=== PATIENT | male | born 1975 | race Caucasian/White ===

== ENCOUNTER 2017-09-08 08:20 | Day surgery (SDC) | payer OTHER ==
[~2017-09-08 08:20] MED LIST: Lactated Ringers 1,000 ML IV SCH; Lidocaine 2% 5 ML SDV ONE; Midazolam 1 MG/ML 2 ML SDV ONE; Propofol 200 MG/20 ML SDV ONE; fentaNYL 100 MCG/2 ML SDV ONE
[2017-09-08] MEDS ORDERED: Sodium Chloride 0.9% 10 ML Syringe FLUSH PRN ×2 (09:00)
[2017-09-08] MEDS ORDERED: Lactated Ringers 1,000 ML IV SCH (09:00)
[2017-09-08] MEDS ORDERED: Sodium Chloride 0.9% 2.5 ML Syringe FLUSH PRN ×2 (09:00)
--- NOTE | 2017-09-08 09:17 | PCM.PREANE ---
Preanesthetic Assessment - Anesthesia/Transfusion/Family Hx Anesthesia History: Prior Anesthesia Without Reaction Family History of Anesthesia Reaction: No Transfusion History: Prior Transfusion Without Reaction Intubation History: Unknown - Review of Systems General: No Symptoms Pulmonary: No Symptoms Cardiovascular: No Symptoms Gastrointestinal: Other (perianal pain) Neurological: No Symptoms Other: Reports: None - Physical Assessment O2 Sat by Pulse Oximetry: 94 Respiratory Rate: 16 Vital Signs: Last Vital Signs Temp 36.6 C 09/08/17 08:58 Pulse 70 09/08/17 08:58 Resp 16 09/08/17 08:58 BP 136/80 09/08/17 08:58 Pulse Ox 94 L 09/08/17 08:58 Height: 1.83 m Weight: 139.253 kg ASA Class: 2 Mental Status: Alert & Oriented x3 Airway Class: Mallampati = 2 Dentition: Reports: Normal Dentition, [place](s) (x2 upper front and left) Thyro-Mental Finger Breadths: 3 Mouth Opening Finger Breadths: 3 ROM/Head Extension: Full Lungs: Clear to Auscultation, Normal Respiratory Effort Cardiovascular: Regular Rate, Regular Rhythm - Allergies Allergies/Adverse Reactions: Allergies Allergy/AdvReac Type Severity Reaction Status Date / Time No Known Allergies Allergy Verified 09/02/17 14:05 - Blood Blood Available: No - Anesthesia Plan Pre-Op Medication Ordered: None - Acknowledgements Anesthesia Type Planned: MAC Pt an Appropriate Candidate for the Planned Anesthesia: Yes Alternatives and Risks of Anesthesia Discussed w Pt/Guardian: Yes Pt/Guardian Understands and Agrees with Anesthesia Plan: Yes PreAnesthesia Questionnaire Cardiovascular History: Reports: Hypertension Gastrointestinal History: Reports: Hemorrhoids, Other (See Below) Other Gastrointestinal History: anal fissure Genitourinary History: Reports: None Musculoskeletal History: Reports: Fracture, Other (See Below) Other Musculoskeletal History: fx thumb Psychiatric History: Reports: ADD, Anxiety, Depression Endocrine/Metabolic History: Reports: Obesity/BMI 30+ Hematologic History: Reports: Other (See Below) 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, 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 - Past Surgical History Head Surgeries/Procedures: Reports: None GI Surgical History: Reports: Appendectomy, Hernia, Inguinal, Other (See Below) Other GI Surgeries/Procedures: pyloromyotomy for pyloric stenosis at 6 weeks old , hernia repair x3 - SUBSTANCE USE Smoking Status *Q: Never Smoker Recreational Drug Use History: No - HOME MEDS Home Medications: Home Meds Losartan/Hydrochlorothiazide [Losartan-HCTZ 50-12.5 MG] 1 tab PO DAILY 09/02/17 [History] Methylphenidate HCl 20 mg PO DAILY 09/02/17 [History] Sertraline HCl 100 mg PO DAILY 09/02/17 [History] - CURRENT (IN HOUSE) MEDS Current Meds: Current Medications Lactated Ringer's (Ringers, Lactated) 1,000 mls @ 125 mls/hr IV ASDIRECTED HUE Last Admin: 09/08/17 08:55 Dose: 125 mls/hr Lactated Ringer's (Ringers, Lactated) 1,000 mls @ 125 mls/hr IV ASDIRECTED HUE Sodium Chloride (Saline Flush) 10 ml FLUSH ASDIRECTED PRN PRN Reason: Keep Vein Open Sodium Chloride (Saline Flush) 2.5 ml FLUSH ASDIRECTED PRN PRN Reason: Keep Vein Open Sodium Chloride (Saline Flush) 10 ml FLUSH ASDIRECTED PRN PRN Reason: Keep Vein Open Sodium Chloride (Saline Flush) 2.5 ml FLUSH ASDIRECTED PRN PRN Reason: Keep Vein Open Discontinued Medications Fentanyl (Sublimaze) Confirm Administered Dose 100 mcg .ROUTE .STK-MED ONE Stop: 09/08/17 07:23 Lidocaine (Xylocaine-Mpf 2%) Confirm Administered Dose 5 ml .ROUTE .STK-MED ONE Stop: 09/08/17 07:23 Midazolam HCl (Versed 1 Mg/Ml) Confirm Administered Dose 2 mg .ROUTE .STK-MED ONE Stop: 09/08/17 07:23 Propofol (Diprivan 20 Ml) Confirm Administered Dose 400 mg .ROUTE .STK-MED ONE Stop: 09/08/17 07:23
[2017-09-08] MEDS ORDERED: fentaNYL 100 MCG/2 ML SDV ONE (09:55)
--- NOTE | 2017-09-08 10:15 | PCM.OPNOTE ---
- General Post-Op/Procedure Note Date of Surgery/Procedure: 09/08/17 Operative Procedure(s): Diagnostic colonoscopy Findings: Grade 4 hemorrhoids with large left lateral column Pre Op Diagnosis: Chana-anal pain Post-Op Diagnosis: Grade 4 hemorrhoids Anesthesia Technique: CHET Primary Surgeon: Ya Calderon Condition: Good
--- NOTE | 2017-09-08 10:51 | PCM48HPAN ---
Post Anesthesia Note - EVALUATION WITHIN 48HRS OF ANESTHETIC Vital Signs in Normal Range: Yes Patient Participated in Evaluation: Yes Respiratory Function Stable: Yes Airway Patent: Yes Cardiovascular Function Stable: Yes Hydration Status Stable: Yes Pain Control Satisfactory: Yes Nausea and Vomiting Control Satisfactory: Yes Mental Status Recovered: Yes Resp Rate: 15 - COMMENTS/OBSERVATIONS Free Text/Narrative:: no anesthesia problems
--- NOTE | 2017-09-08 11:19 | OR ---
SURGEON: ELIZABETH BUCIO MD DATE OF PROCEDURE: 09/08/2017 PREOPERATIVE DIAGNOSIS: Perianal pain. POSTOPERATIVE DIAGNOSIS: Grade 4 hemorrhoids. PROCEDURES PERFORMED: Exam under anesthesia, diagnostic colonoscopy. ANESTHESIA: MAC. INSTRUMENT USED: Olympus colonoscope. EXTENT OF THE EXAMINATION: To the cecum. PREPARATION: Good. LIMITATIONS: None. INDICATIONS FOR EXAMINATION: The patient is a 42-year-old male who presents with perianal pain. He has tried [id number] creams and fiber therapy with some improvement, but not resolution of his symptoms. A decision was made to perform a diagnostic colonoscopy. The patient and I discussed the procedure; expected perioperative course; and risks including bleeding, infection, or damage to surrounding structures including perforation. The patient verbalized understanding and wishes to proceed. PROCEDURE IN DETAIL: The patient was brought to the endoscopy suite and placed in the left lateral decubitus position. A time-out was completed verifying the patient's name, age, date of , allergies, and procedure to be performed. Monitored anesthesia care was induced, and continuous oxygen was provided via nasal cannula throughout the procedure. After adequate sedation was achieved, a digital rectal exam was performed as well as an extensive exam of the anoderm. The patient was noted to have large prolapsing grade 4 hemorrhoids. The largest of these was the left lateral colon. On digital rectal exam, I could not palpate any masses. The patient was noted to have some pain along the posterior aspect of his anus on exam. Inspection of this area, however, did not reveal any evidence of an anal fissure. A well-lubricated colonoscope was inserted into the rectum and advanced under direct visualization to the level of the cecum. The cecum was identified by both visual and anatomic landmarks. A photograph was taken of the cecal cap, as well as the scope retroflexed within the cecum. The scope was then fully withdrawn while examining the color, texture, anatomy, and integrity of the mucosa from the cecum to the anal canal. The findings were consistent with normal colonic mucosa. The scope was brought into the rectum and retroflexed to allow visualization of the anal canal opening. This appeared normal, and a photograph was taken. The scope was then straightened out and fully withdrawn. Special care was taken to inspect the anal canal as the scope was being withdrawn. No evidence of any mass or irregular-appearing tissue besides the hemorrhoid was noted. The [id number] time was 9 minutes. The patient was transferred to the PACU in stable condition. ENDOSCOPIC DIAGNOSIS: Grade 4 hemorrhoids. RECOMMENDATIONS: Follow up in the clinic in 2 weeks to discuss hemorrhoidectomy. ERINN BELLE /[id number]
== END 2017-09-08 11:05 | disposition home or self-care (01) ==
LOC: MW.SDS 08:20
PROVIDERS: ATTEND Surgery
DX: K64.3 Fourth degree hemorrhoids (principal); K60.2 Anal fissure, unspecified; I10 Essential (primary) hypertension; E66.9 Obesity, unspecified; Z68.41 Body mass index [BMI] 40.0-44.9, adult; F41.9 Anxiety disorder, unspecified; F32.9 Major depressive disorder, single episode, unspecified; F90.9 Attention-deficit hyperactivity disorder, unspecified type; Z79.899 Other long term (current) drug therapy; Z98.890 Other specified postprocedural states
CPT/HCPCS: 45378; J2250; J3010; J7120; 00811; J2704

== ENCOUNTER 2017-10-01 08:15 | Day surgery (SDC) | payer OTHER ==
[~2017-10-01 08:15] MED LIST changes: -Lidocaine 2% 5 ML SDV ONE; -Midazolam 1 MG/ML 2 ML SDV ONE; -Propofol 200 MG/20 ML SDV ONE; +Sodium Chloride 0.9% 10 ML Syringe FLUSH PRN; +Sodium Chloride 0.9% 2.5 ML Syringe FLUSH PRN; +ceFAZolin 2 GM in Premix Bag 1 BAG IV ONE; -fentaNYL 100 MCG/2 ML SDV ONE
--- NOTE | 2017-10-01 08:36 | PCM.PREANE ---
Preanesthetic Assessment - Anesthesia/Transfusion/Family Hx Anesthesia History: Prior Anesthesia Without Reaction Family History of Anesthesia Reaction: No Transfusion History: Prior Transfusion Without Reaction Type of Transfusion Reactions: Other Type of Transfusion Reaction: had gammaglobulin transfusion in [facility] for ITP Intubation History: Unknown - Review of Systems General: No Symptoms Pulmonary: No Symptoms Cardiovascular: No Symptoms Gastrointestinal: No Symptoms Neurological: No Symptoms Other: Reports: None - Physical Assessment O2 Sat by Pulse Oximetry: 95 Respiratory Rate: 16 Vital Signs: Last Vital Signs Temp 36.6 C 10/01/17 08:27 Pulse 72 10/01/17 08:27 Resp 16 10/01/17 08:27 BP 147/93 H 10/01/17 08:27 Pulse Ox 95 10/01/17 08:27 Height: 1.83 m Weight: 138.346 kg ASA Class: 2 Mental Status: Alert & Oriented x3 Airway Class: Mallampati = 3 Dentition: Reports: Normal Dentition ( teeth x2 upper front, one has cap on it) Thyro-Mental Finger Breadths: 3 Mouth Opening Finger Breadths: 2 ROM/Head Extension: Full Lungs: Clear to Auscultation, Normal Respiratory Effort Cardiovascular: Regular Rate, Regular Rhythm - Allergies Allergies/Adverse Reactions: Allergies Allergy/AdvReac Type Severity Reaction Status Date / Time No Known Allergies Allergy Verified 09/25/17 13:29 - Blood Product(s) Available: None - Anesthesia Plan Pre-Op Medication Ordered: None - Acknowledgements Anesthesia Type Planned: General Anesthesia (prone (arlette knife)) Pt an Appropriate Candidate for the Planned Anesthesia: Yes Alternatives and Risks of Anesthesia Discussed w Pt/Guardian: Yes Pt/Guardian Understands and Agrees with Anesthesia Plan: Yes PreAnesthesia Questionnaire Cardiovascular History: Reports: Hypertension Gastrointestinal History: Reports: Hemorrhoids, Other (See Below) Other Gastrointestinal History: anal fissure Genitourinary History: Reports: None Musculoskeletal History: Reports: Fracture, Other (See Below) Other Musculoskeletal History: fx thumb Psychiatric History: Reports: ADD, Anxiety, Depression Endocrine/Metabolic History: Reports: Obesity/BMI 30+ (BMI 41.4) Hematologic History: Reports: Idiopathic Thrombocytopenia, Other (See Below) 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, 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 - Past Surgical History Head Surgeries/Procedures: Reports: None GI Surgical History: Reports: Appendectomy, Colonoscopy, Hernia, Inguinal (x3 ( bilateral, left one x2)), Other (See Below) Other GI Surgeries/Procedures: pyloromyotomy for pyloric stenosis at 6 weeks old , hernia repair x3 - SUBSTANCE USE Smoking Status *Q: Former Smoker (quit 20 years ago) Recreational Drug Use History: No - HOME MEDS Home Medications: Home Meds Losartan/Hydrochlorothiazide [Losartan-HCTZ 50-12.5 MG] 1 tab PO DAILY 09/02/17 [History] Methylphenidate HCl 20 mg PO DAILY 09/02/17 [History] Sertraline HCl 100 mg PO DAILY 09/02/17 [History] - CURRENT (IN HOUSE) MEDS Current Meds: Current Medications Lactated Ringer's (Ringers, Lactated) 1,000 mls @ 125 mls/hr IV ASDIRECTED HUE Last Admin: 10/01/17 08:32 Dose: 125 mls/hr Sodium Chloride (Saline Flush) 10 ml FLUSH ASDIRECTED PRN PRN Reason: Keep Vein Open Sodium Chloride (Saline Flush) 2.5 ml FLUSH ASDIRECTED PRN PRN Reason: Keep Vein Open Discontinued Medications Cefazolin Sodium/Dextrose 2 gm (/ Premix) 50 mls @ 100 mls/hr IV ONETIME ONE Stop: 09/27/17 10:31
[2017-10-01] MEDS ORDERED: Ondansetron 4 MG/2 ML SDV ONE (09:09)
[2017-10-01] MEDS ORDERED: Rocuronium 10 MG/ML 10 ML Syringe ONE (09:09)
[2017-10-01] MEDS ORDERED: Propofol 200 MG/20 ML SDV ONE (09:09)
[2017-10-01] MEDS ORDERED: Lidocaine 2% 5 ML SDV ONE (09:09)
[2017-10-01] MEDS ORDERED: Midazolam 1 MG/ML 2 ML SDV ONE (09:09)
[2017-10-01] MEDS ORDERED: fentaNYL 250 MCG/5 ML SDV ONE (09:09)
[2017-10-01] MEDS ORDERED: Dexamethasone 4 MG/ML 5 ML MDV ONE (09:09)
[2017-10-01] MEDS ORDERED: ceFAZolin/Dextrose,Iso-Osmotic 2 GM/50 ML Duplex Bag IV ONE (09:11)
[2017-10-01] MEDS ORDERED: Bupivacaine 0.5% 30 ML SDV ONE (09:28)
[2017-10-01] MEDS ORDERED: Gelatin Sponge,Absorbable 12-7 mm Sponge TOP ONE (09:28)
[2017-10-01] MEDS ORDERED: Succinylcholine 200 MG/10 ML MDV ONE (10:05)
--- NOTE | 2017-10-01 11:02 | PCM.OPNOTE ---
- General Post-Op/Procedure Note Date of Surgery/Procedure: 10/01/17 Operative Procedure(s): Hemorrhoidectomy Findings: Large prolapsed left lateral hemorrhoid, smaller right lateral hemorrhoid Pre Op Diagnosis: Grade IV hemorrhoid Post-Op Diagnosis: same Anesthesia Technique: General ET Tube Primary Surgeon: Ya Calderon Secondary Surgeon: Mason Vicente Fluid Replacement, Intraop: 1,400 EBL in mLs: 25 Condition: Good
[2017-10-01] MEDS ORDERED: fentaNYL 100 MCG/2 ML SDV IVPUSH PRN (11:09)
--- NOTE | 2017-10-01 11:32 | PCM.POSTAN ---
POST ANESTHESIA ASSESSMENT - MENTAL STATUS Mental Status: Alert, Oriented - RESPIRATORY Respiratory Status: Respiratory Rate WNL, Airway Patent, O2 Saturation Stable - CARDIOVASCULAR CV Status: Pulse Rate WNL, Blood Pressure Stable - GASTROINTESTINAL GI Status: No Symptoms - PAIN Pain Score: 2 - POST OP HYDRATION Hydration Status: Adequate & Stable
[2017-10-01] MEDS ORDERED: Acetaminophen/oxyCODONE 325-5 MG Tab PO PRN (12:53)
--- NOTE | 2017-10-02 01:04 | OR ---
SURGEON: ELIZABETH BUCIO MD DATE OF PROCEDURE: 10/01/2017 PREOPERATIVE DIAGNOSIS: Grade 4 internal hemorrhoids. POSTOPERATIVE DIAGNOSIS: Grade 4 internal hemorrhoids. PROCEDURE PERFORMED: Hemorrhoidectomy. CUPOLA TAPPER: Mason Vicente MD FLUIDS: 1400 mL of crystalloid. ESTIMATED BLOOD LOSS: 25 mL. FINDINGS: Large left lateral prolapsed internal hemorrhoid and moderate-sized prolapsed right internal hemorrhoid. COMPLICATIONS: None. INDICATIONS: The patient is a 42-year-old male who came to my office complaining of perianal pain. A colonoscopy was performed that showed large grade 4 internal hemorrhoids. There was no sign of an anal fissure. The decision was made to proceed with a hemorrhoidectomy. The patient and I discussed the procedure as well as expected perioperative course. We discussed in length the aftercares required for good healing and pain control. We discussed the risks including bleeding, infection, or damage to surrounding structures resulting in alteration of continence that may be temporary or permanent. The patient verbalized understanding and wishes to proceed. PROCEDURE IN DETAIL: The patient was brought into the OR in the OR cart. A time-out was completed verifying the patient's name, age, date of , allergies, and procedure to be performed. General endotracheal anesthesia was induced. The patient was then placed in a prone position on the operating room table taking care to appropriately pad all bony surfaces. He was then put in the prone jackknife position. The buttocks and anus were prepped and draped in usual standard fashion. A digital rectal exam was performed. This confirmed my previous finding of enlarged prolapsed grade 4 hemorrhoids. A bivalve proctoscope was inserted in the rectum. The patient was noted to have a very large left lateral internal hemorrhoidal column as well as a moderately sized right lateral column of hemorrhoidal tissue. The decision was made to remove these. I turned my attention to the left side. The redundant tissue was grasped with a clamp and elevated. A needle cautery was then used to excise this redundant tissue. A 3-0 chromic suture was used to close the mucosal defect. The tissue within the anal canal was closed with a running locking stitch. this was transitioned to a running stitch on the anoderm. This was stitched back on itself, and the chromic tied to itself within the anal canal. I then turned my attention to the right lateral hemorrhoidal column. This was elevated with a clamp in a similar fashion and removed with cautery. The cautery was arcing, and so I decided to remove the remainder of the tissue with a #15 blade. The anal canal mucosa was closed again with a running locking stitch that was transitioned to a running stitch on the anoderm and then whipstitched back into the anal canal and tied to itself. Surgicel and Surgifoam were then inserted in the anal canal and pressure held for 5 minutes. After this, good hemostasis was achieved. A single piece of Surgifoam was placed back in the anal canal and left there. The anoderm was circumferentially anesthetized with 0.5% Marcaine plain. Nerve blocks were done on either side of the buttocks. Fluffs and mesh panties were placed over the anus. The patient tolerated the procedure well. He was placed back on the OR cart and extubated. He was taken to the PACU in stable condition. ERINN BELLE /[id number] RICKY
== END 2017-10-01 13:39 | disposition home or self-care (01) ==
LOC: MW.SDS 08:15
PROVIDERS: ATTEND Surgery
DX: K64.3 Fourth degree hemorrhoids (principal); I10 Essential (primary) hypertension; D69.3 Immune thrombocytopenic purpura; E66.9 Obesity, unspecified; Z68.41 Body mass index [BMI] 40.0-44.9, adult; F41.9 Anxiety disorder, unspecified; F32.9 Major depressive disorder, single episode, unspecified; F98.8 Other specified behavioral and emotional disorders with onset usually occurring in childhood and adolescence; Z87.891 Personal history of nicotine dependence; Z79.899 Other long term (current) drug therapy
CPT/HCPCS: A9270-GY; J0330; J0690; J1100; J2250; J2405; J2704; J3010; J7120